=== PATIENT | male | born 1980 | race Caucasian/White ===

== ENCOUNTER 2023-02-03 00:28 | Emergency (ER) | payer OTHER, SELFPAY ==
[2023-02-03 00:35] VITALS: BP 132/86; PULSE 60; RESP 16; TEMP 36.9; O2SAT 98
--- NOTE | 2023-02-03 00:48 | ED_ITS ---
HPI - Abdominal Pain General Chief Complaint: Abdominal Pain Stated Complaint: abd pain Time Seen by Provider: 02/03/23 00:42 Source: patient Mode of arrival: Ambulatory History of Present Illness HPI narrative: Patient is a 42-year-old healthy male who presents with sudden onset of epigastric umbilical pain radiating through to his back. He reports that he is extremely stressed at work he gets very stressed Friday that week before he has to go to work. He took Tylenol and ibuprofen prior to going to bed because he always grinds his teeth. He would 1 glass of wine some ice cream and pizza for dinner. He is not nauseous or vomiting. Pain does not radiate up and to his chest. Prior to arrival he took antacid medication. He was feeling well earlier in the day Related Data Allergies Allergy/AdvReac Type Severity Reaction Status Date / Time No Known Drug Allergies Allergy Verified 02/03/23 00:42 Review of Systems Review of Systems ROS Unobtainable: All systems reviewed & are unremarkable except as noted in HPI and below Patient History Social History Smoking Status: Never smoker Smoking Status: Never smoker alcohol intake frequency: holidays/special occasions only Exam Initial Vital Signs Initial Vital Signs: Vital Signs Temperature 98.4 F 02/03/23 00:35 Pulse Rate 60 02/03/23 00:35 Respiratory Rate 16 02/03/23 00:35 Blood Pressure 132/86 02/03/23 00:35 Pulse Oximetry 98 02/03/23 00:35 Oxygen Delivery Method Room Air 02/03/23 00:35 GENERAL: Alert pleasant 42-year-old male and in no acute distress. HEENT: Head atraumatic,EOMI, pupils reactive, face symmetric, moist mucous membranes CARDIOVASCULAR: Regular rate and rhythm without murmurs, rubs or gallops. RESPIRATORY: Breath sounds equal bilaterally, no wheezes rales or rhonchi. ABDOMEN: Soft, epigastric pain no right upper quadrant pain negative Clark sign no guarding no rebound no distended EXTREMITIES: Normal range of motion, no clubbing or edema. Neurovascularly intact NEUROLOGICAL: Alert and oriented x4.Normal gait and speech. SKIN: Warm, dry, no laceration, no petechiae, no rashes or lesions. Course Orders Ordered: ED Orders 02/03/23 00:43 Complete Blood Count AUTO DIFF Stat Comprehensive Metabolic Panel Stat Lipase Stat EKG-12 Lead Stat 02/03/23 00:54 Troponin & CK Cardiac Panel Stat Vital Signs Vital signs: Vital Signs - 8 hr 02/03/23 00:35 02/03/23 01:31 Temperature 98.4 F Pulse Rate 60 56 L Respiratory Rate 16 16 Blood Pressure 132/86 118/79 Pulse Oximetry 98 98 Oxygen Delivery Method Room Air Room Air MDM - Abdominal Pain Lab Data 02/03/23 00:40 02/03/23 00:40 Labs: Lab Results 02/03/23 02/03/23 02/03/23 Range/Units 00:40 00:40 00:40 WBC 7.6 (4.5-11.0) X10^3/uL RBC 4.80 (4.5-5.9) X10^6/uL Hgb 14.8 (13.5-17.5) g/dL Hct 43.3 (41-53) % MCV 90.2 (80-100) fL MCH 30.9 (26-34) PG MCHC 34.2 (30-36) % RDW 13.0 (11.6-14.8) % Plt Count 222 (150-400) X10^3/uL Neut % (Auto) 52.6 (50-75) % Lymph % (Auto) 35.1 (25-40) % [place] % (Auto) 8.8 (3-14) % Eos % (Auto) 2.8 (2-4) % Baso % (Auto) 0.7 (0-2) % Neut # (Auto) 4000 (9509-2576) /uL Lymph # (Auto) 2700 (5457-0517) /uL [place] # (Auto) 700 (0-900) /uL Eos # (Auto) 200 (0-450) /uL Baso # (Auto) 100 (0-100) /uL Sodium 137 (137-145) mmol/L Potassium 4.0 (3.4-5.1) mmol/L Chloride 99 (98-107) mmol/L Carbon Dioxide 30 (22-32) mmol/L BUN 21 H (9-20) mg/dL Creatinine 1.06 (0.66-1.25) mg/dL Estimated GFR > 60 (>60) mL/min BUN/Creatinine Ratio 19.8 (6-22) Glucose 97 (70-100) mg/dL Calcium 8.8 (8.4-10.2) mg/dL Total Bilirubin 0.4 (0.2-1.3) mg/dL AST 22 (17-59) IU/L ALT 22 (<50) IU/L Alkaline Phosphatase 57 (38-126) U/L Total Creatine Kinase 64 (55-170) U/L CK-MB (CK-2) TNP CK-MB (CK-2) Rel Index TNP Troponin I < 0.012 (0.01-0.034) ng/mL Total Protein 7.3 (6.3-8.2) g/dL Albumin 4.1 (3.5-5.0) g/dL Globulin 3.2 (1.7-4.1) g/dL Albumin/Globulin Ratio 1.3 (1.0-2.8) Lipase 291 (23-300) U/L ECG Data Interpretation: Normal sinus rhythm rate 57 OK interval 156 QRS 110 QTC 414 T-wave inversions lead [address] changes no priors to compare MDM Narrative Medical decision making narrative: Patient is a healthy 42-year-old male presents with epigastric pain radiating through to his back which improved after his home Prilosec. He is no right upp er quadrant pain blood work is overall reassuring without leukocytosis elevated lipase bilirubin or liver enzymes. No evidence of DELILAH. EKG did not show any abnormality and troponin is also negative. Patient is quite stressed at work suspect symptoms are most related to acid reflux. I do not suspect dissection blood pressure is is within normal limits and symptoms are completely resolved. Abdomen is he examined and nontender. Discharge Plan Departure Patient Disposition: Home Clinical Impression: GERD (gastroesophageal reflux disease) Instructions: DI for Gastroesophageal Reflux Disease (GERD) Activity Restrictions/Additional Instructions: *You have been diagnosed with acid reflux *What to do: At this time blood work is overall reassuring. Probably acid reflux. I do recommend a mouth guard to help with grinding *Continue to take medications as directed Omeprazole 20 mg daily *Follow up with your primary care provider in 2-3 days or call [phone] *Return to ER if you should have increasing pain nausea vomiting chest pain shortness of breath or any new, worsening or concerning symptoms Referrals: Provider,[place] FLOYD [Primary Care Provider] - Stand Alone Forms: Patient Portal/API
[2023-02-03 00:53] LABS: Add Manual Diff / Slide Review NO; Basophils Absolute Auto 100 /uL (0-100); Basophils Percent Auto 0.7 % (0-2); Eosinophils Absolute Auto 200 /uL (0-450); Eosinophils Percent Auto 2.8 % (2-4); Hematocrit 43.3 % (41-53); Hemoglobin 14.8 g/dL (13.5-17.5); Lymphocytes Absolute Auto 2700 /uL (1100-4500); Lymphocytes Percent Auto 35.1 % (25-40); Mean Corpuscular HGB Conc 34.2 % (30-36); Mean Corpuscular Hemoglobin 30.9 PG (26-34); Mean Corpuscular Volume 90.2 fL (80-100); Monocytes Absolute Auto 700 /uL (0-900); Monocytes Percent Auto 8.8 % (3-14); Neutrophils Absolute Auto 4000 /uL (1500-7000); Neutrophils Percent Auto 52.6 % (50-75); Platelet Count 222 X10^3/uL (150-400); White Blood Cell Count 7.6 X10^3/uL (4.5-11.0)
[2023-02-03 00:58] LABS: Alanine Aminotransferase 22 IU/L (<50); Albumin 4.1 g/dL (3.5-5.0); Albumin Globulin Ratio 1.3 (1.0-2.8); Alkaline Phosphatase 57 U/L (38-126); Aspartate Aminotransferase 22 IU/L (17-59); BUN Creatinine Ratio 19.8 (6-22); Bilirubin Total 0.4 mg/dL (0.2-1.3); Blood Urea Nitrogen 21 mg/dL (9-20); Calcium 8.8 mg/dL (8.4-10.2); Carbon Dioxide 30 mmol/L (22-32); Chloride 99 mmol/L (98-107); Estimated Glomerular Filt Rate > 60 mL/min (>60); Globulin 3.2 g/dL (1.7-4.1); Glucose 97 mg/dL (70-100); HEMOLYSIS < 15 (0-50); Lipase 291 U/L (23-300); Sodium 137 mmol/L (137-145); Total Protein 7.3 g/dL (6.3-8.2)
[2023-02-03 01:05] LABS: Creatine Kinase 64 U/L (55-170)
[2023-02-03 01:17] LABS: Troponin I < 0.012 ng/mL (0.01-0.034)
[2023-02-03 01:31] VITALS: BP 118/79; PULSE 56; RESP 16; O2SAT 98
== END 2023-02-03 01:32 | disposition home or self-care (01) ==
PROVIDERS: Emergency Provider Emergency Medicine
DX: K21.9 Gastro-esophageal reflux disease without esophagitis (principal); R10.13 Epigastric pain
CPT/HCPCS: 36415; 80053; 82550; 83690; 84484; 85025; 93005; 93010; 99283; 99284

== ENCOUNTER → 2024-08-29 15:13 | Outpatient (CLI) | payer OTHER, SELFPAY ==
--- NOTE | 2024-08-29 15:14 | DI.MRI.S_ITS ---
PROCEDURE: MR FEMUR RT WO CON INDICATIONS: INJURY OF MUSCLE,FASCIA TENDON THIGH LEVEL RT TECHNIQUE: Noncontrast coronal and sagittal T1 spin echo and STIR; axial T1 spin echo and T2 fast spin echo with fat saturation through the right thigh COMPARISON: None. FINDINGS: Image quality: Excellent. Bones: The visualized bone marrow demonstrates normal signal on all sequences. The overlying cortex appears intact. No fractures lines or intra-osseous lesions. Soft tissues: There is edema and intramuscular fluid collection involving proximal semimembranosus muscle just distal to the musculotendinous junction in mid to distal thigh. other Rest of the scanned muscles demonstrate normal overall bulk and internal signal. Subcutaneous tissues appear normal as well. No soft tissue masses are present. IMPRESSION: 1. Finding is consistent with moderate grade partial-thickness tear involving proximal to mid semimembranosus muscle at the level of mid to distal thigh with ill-defined intramuscular hematoma. No full-thickness muscle or tendon rupture. 2. No other muscle or tendon signal abnormalities. 3. No marrow signal abnormality. No fracture or dislocation. No suspicious intraosseous lesions. Dictated by: Charlie Lee M.D. on 08/30/2024 at 13:33 Approved by: Charlie Lee M.D. on 08/30/2024 at 13:40
== END ==
LOC: MRI 15:14
DX: S76.301A Unspecified injury of muscle, fascia and tendon of the posterior muscle group at thigh level, right thigh, initial encounter (principal); X58.XXXA Exposure to other specified factors, initial encounter
CPT/HCPCS: 73718

== ENCOUNTER → 2025-02-06 14:36 | Outpatient (CLI) | payer OTHER, SELFPAY ==
--- NOTE | 2025-02-06 14:40 | DI.MRI.S_ITS ---
PROCEDURE: MR WRIST RT WO CON INDICATIONS: WRIST PAIN TECHNIQUE: Noncontrast coronal proton density fast spin echo and T2 fast spin echo with fat saturation; coronal 3-D gradient echo, axial T1 spin echo and T2 fast spin echo with fat saturation, sagittal T1 spin echo through the wrist. COMPARISON: None. FINDINGS: Image quality: Excellent. Bones and cartilage: There is mild subchondral marrow edema of the proximal scaphoid, about the scapholunate interval, favor reactive. There is mild subchondral marrow edema at the proximal hamate, with small area of overlying full-thickness chondral loss, degenerative. No acute fracture. Carpal ligaments: Partial-thickness tear of the scapholunate ligament. The lunotriquetral ligament is intact. Triangular fibrocartilage complex: The triangular fibrocartilage appears intact. The adjacent meniscal homolog appears normal in the absence of intra-articular contrast. The extensor carpi ulnaris tendon is normal in location and morphology. Tendons and soft tissues: The carpal tunnel structures appear normal, including the median nerve. The ulnar nerve appears normal within Guyon's canal. There is mild tenosynovitis of the 2nd extensor compartment, at the level of the proximal and distal carpal row. Interstitial tear of the extensor carpi ulnaris at the level of the proximal carpal row. No ganglion cyst. IMPRESSION: 1. Partial-thickness tear of the scapholunate ligament with subjacent mild reactive subchondral marrow edema in the scaphoid. 2. Small area of full-thickness chondral loss in the proximal hamate with associated mild marrow edema, degenerative. 3. Mild tenosynovitis of the 2nd extensor compartment. 4. Interstitial tear of the extensor carpi ulnaris. Dictated by: Beverly Arteaga M.D. on 02/07/2025 at 15:01 Approved by: Beverly Arteaga M.D. on 02/07/2025 at 15:11
== END ==
DX: S63.591A Other specified sprain of right wrist, initial encounter (principal); S66.811A Strain of other specified muscles, fascia and tendons at wrist and hand level, right hand, initial encounter; M25.531 Pain in right wrist; M65.841 Other synovitis and tenosynovitis, right hand
CPT/HCPCS: 73221